=== PATIENT | female | born 1995 | race Native Hawaiian/Other Pacific Islander ===

== ENCOUNTER 2017-12-05 23:06 | Emergency (ER) | payer OTHER ==
[2017-12-05] MEDS ORDERED: Sodium Chloride 0.9% 1,000 ML IV ONE (23:40)
[2017-12-05 23:59] LABS: BASO % 0.6 % (0.0-2.0); EOS # 0.1 K/uL (0.0-0.7); EOS % 0.8 % (0.0-4.0); HEMOGLOBIN 11.1 g/dL (11.0-16.0); LYMPH # 3.1 K/uL (1.0-4.3); MEAN CELL VOLUME 87.3 fL (81.0-99.0); MEAN CORPUSCULAR HEMOGLOBIN 29.7 pg (27.0-31.0); MEAN PLATELET VOLUME 7.9 fL (7.2-11.7); MONO # 0.7 K/uL (0.0-0.8); MONO % 9.7 % (0.0-10.0); NEUT # 3.3 K/uL (1.8-7.0); NEUT % 45.9 % (50.0-75.0); NRBC % 0.4 % (0.0-2.0); RBC 3.76 Mil/uL (3.80-5.20); RED CELL DISTRIBUTION WIDTH 13.4 % (11.5-14.5); WHITE BLOOD COUNT 7.1 K/uL (4.8-10.8)
--- NOTE | 2017-12-06 00:06 | C.PDOC ---
History Of Present Illness <Jayy Can - Last Filed: 12/06/17 01:11> <Apple Fernandez - Last Filed: 12/06/17 06:49> <Silvino Mejia M - Last Filed: 12/06/17 09:29> 22 y/o female brought to ED by her family and boyfriend for bizarre behavior and vomiting due to panicking. As per boyfriend, patient ate edible marijuana and "is on a bad trip." Denies any physical complaints. (Jayy Can) History Per: Patient History/Exam Limitations: no limitations Onset/Duration Of Symptoms: Hrs Current Symptoms Are (Timing): Still Present Suicide/Self Injury Attempted (Context): None Modifying Factor(s): Marijuana Associated Symptoms: denies: Suicidal Thoughts, Suicidal Plan Involuntary Hold By: None Recent travel outside of the [place]: No <Jayy Can - Last Filed: 12/06/17 01:11> <Apple Fernandez - Last Filed: 12/06/17 06:49> <Silvino Mejia M - Last Filed: 12/06/17 09:29> Time Seen by Provider: 12/05/17 23:39 Chief Complaint (Nursing): Substance Abuse Past Medical History Reviewed: Historical Data, Nursing Documentation, Vital Signs - Medical History PMH: No Chronic Diseases Surgical History: No Surg Hx Family History: States: No Known Family Hx - Social History Hx Alcohol Use: No (unknown) Hx Substance Use: No (unknown) - Immunization History Hx Tetanus Toxoid Vaccination: No Hx Influenza Vaccination: No Hx Pneumococcal Vaccination: No <Jayy Can - Last Filed: 12/06/17 01:11> Vital Signs: Last Vital Signs Temp 98 F 12/06/17 07:19 Pulse 68 12/06/17 09:10 Resp 20 12/06/17 09:10 BP 114/73 12/06/17 09:10 Pulse Ox 98 12/06/17 09:10 Review Of Systems Constitutional: Negative for: Fever, Chills Gastrointestinal: Positive for: Vomiting. Negative for: Nausea, Abdominal Pain , Diarrhea Skin: Negative for: Rash Neurological: Negative for: Weakness, Numbness Psych: Negative for: Suicidal ideation <Jayy Can - Last Filed: 12/06/17 01:11> Physical Exam - Physical Exam Appears: Well, Non-toxic, No Acute Distress, Other (Bizarre ) Skin: Normal Color, Warm, Dry, No Rash Head: Atraumatic, Normacephalic Eye(s): bilateral: Normal Inspection (Aguiar colored contacts ), PERRL, EOMI Oral Mucosa: Moist Neck: Supple Chest: Symmetrical, No Tenderness Cardiovascular: Rhythm Regular, No Murmur Respiratory: Normal Breath Sounds, No Decreased Breath Sounds, No Rales, No Rhonchi, No Wheezing Gastrointestinal/Abdominal: Soft, No Tenderness, No Distention Extremity: Normal ROM, No Deformity Extremity: Bilateral: Atraumatic, Normal Color And Temperature, Normal ROM Neurological/Psych: Oriented x3, Normal Speech Gait: Steady <Jayy Can - Last Filed: 12/06/17 01:11> ED Course And Treatment - Laboratory Results Result Diagrams: 12/05/17 23:56 12/05/17 23:56 Lab Interpretation: Abnormal (+ mild elev glu, tox + THC) Urine POC: Negative ECG: Interpreted By Fl ECG Rhythm: Sinus Rhythm ECG Interpretation: Normal Rate From EC O2 Sat by Pulse Oximetry: 98 (RA) Pulse Ox Interpretation: Normal Progress Note: 0000: bizarre, hallucinating, agitated, incoherent. Ativan 2 mg IV for gentle overnight sedation. Reevaluation Time: 01:01 Reassessment Condition: Improved (sleeping comfortably, VSS on monitor) <Jayy Can - Last Filed: 12/06/17 01:11> - Laboratory Results Result Diagrams: 12/05/17 23:56 12/05/17 23:56 <Apple Fernandez - Last Filed: 12/06/17 06:49> - Laboratory Results Result Diagrams: 12/05/17 23:56 12/05/17 23:56 <Silvino Mejia - Last Filed: 12/06/17 09:29> Progress <Jayy Can - Last Filed: 12/06/17 01:11> - Data Reviewed Data Reviewed: Lab, Diagnostic imaging, Old records <Apple Fernandez - Last Filed: 12/06/17 06:49> <Silvino Mejia - Last Filed: 12/06/17 09:29> - Re-Evaluation Re-evaluation Note: 12/06/17 06:27 AWAKE BUT PERSIST INTOX, RESPONSIVE TO DEEP PAIN STIM. UNSTEADY GAIT ONLY W ASSISTANCE. VSS. 12/06/17 07:00 s/o DR CLIF ALMANZAR DISPO (Apple Fernandez) Medical Decision Making <Jayy Can - Last Filed: 12/06/17 01:11> <Apple Fernandez - Last Filed: 12/06/17 06:49> <Silvino Mejia - Last Filed: 12/06/17 09:29> Medical Decision Making: Administered Ativan and IV fluids. Ordered CT Head, EKG, blood work and urinalysis. accidental cannabanoid overdose eating marijuana cookies- bad trip sedated for safety re-eval in AM when sober. (Jayy Can) Disposition Doctor Will See Patient In The: Office - Disposition Disposition Time: 01:00 <Jayy Can - Last Filed: 12/06/17 01:11> <Apple Fernandez - Last Filed: 12/06/17 06:49> - Disposition Disposition Time: 09:28 <Silvino Mejia - Last Filed: 12/06/17 09:29> - Disposition Disposition: HOME/ ROUTINE Condition: STABLE Additional Instructions: follow up with your doctor within 2 days stop marijuana use call to make an appointment return to ER if symptoms worsens or progress Instructions: Marijuana Use and Addiction (DC) Forms: [facility] (Kyrgyz), General Discharge Instructions - Clinical Impression Clinical Impression: Marijuana intoxication - Scribe Statement The provider has reviewed the documentation as recorded by the Scribe <Jayy Can - Last Filed: 12/06/17 01:11> <Apple Fernandez - Last Filed: 12/06/17 06:49> <Silvino Mejia - Last Filed: 12/06/17 09:29> - Scribe Statement Russel Atwood All medical record entries made by the Scribe were at my direction and personally dictated by me. I have reviewed the chart and agree that the record accurately reflects my personal performance of the history, physical exam, medical decision making, and the department course for this patient. I have also personally directed, reviewed, and agree with the discharge instructions and disposition. (Jayy Can) Physician Patient Turnover Patient Signed Over To: Apple Fernandez Handoff Comments: dispo in AM when sober <Jayy Can E - Last Filed: 12/06/17 01:11> Addendum <Jayy Can - Last Filed: 12/06/17 01:11> <Silvino Mejia - Last Filed: 12/06/17 09:29> Addendum: 12/06/17 09:27 Received patient in s/o pending sobriety. Patient has no complaints at this time. Patient discharged home and advised to follow up with pmd within 2 days and to abstain from thc use. (Silvino Mejia)
[2017-12-06 00:38] LABS: SQUAMOUS EPITHIAL < 1 /hpf (0-5); URINE BILIRUBIN NEGATIVE (NEGATIVE); URINE BLOOD NEGATIVE (NEGATIVE); URINE CLARITY Clear (Clear); URINE COLOR Yellow (YELLOW); URINE GLUCOSE (UA) NORMAL (Normal); URINE LEUKOCYTE ESTERASE NEG Leu/uL (Negative); URINE PROTEIN NEGATIVE (NEGATIVE); URINE UROBILINOGEN NORMAL mg/dL (0.2-1.0)
[2017-12-06 00:40] LABS: HCG,QUALITATIVE URINE NEGATIVE (NEGATIVE)
[2017-12-06 00:46] LABS: ACETAMINOPHEN < 10.0 ug/mL (10.0-30.0); SALICYLATE < 1.0 mg/dL 1
[2017-12-06 00:46] LABS: ALB/GLOB RATIO 1.1 (1.0-2.1); ALBUMIN 3.4 g/dL (3.5-5.0); ALT/SGPT 131 U/L (9-52); AST/SGOT 47 U/L (14-36); BLOOD UREA NITROGEN 16 mg/dL (7-17); CALCIUM 8.5 mg/dl (8.6-10.4); GFR AFRICAN-AMERICAN > 60; GFR NON-AFRICAN AMERICAN > 60
[2017-12-06 00:48] LABS: BARBITURATES, UR NEGATIVE (NEGATIVE); BENZODIAZEPINES, UR NEGATIVE (NEGATIVE); OPIATES, UR NEGATIVE (NEGATIVE); PHENCYCLIDINE, UR NEGATIVE (NEGATIVE)
[2017-12-06 04:36] VITALS: O2SAT 98
[2017-12-06 07:20] VITALS: TEMP 98
[2017-12-06 09:12] VITALS: BP 114/73; PULSE 68; RESP 20
--- NOTE | 2017-12-07 11:37 | CARD ---
APPROVED REPORT Date of service: 12/06/2017 EKG Measurement Heart [id number] <Conclusion> Normal sinus rhythm Normal ECG
== END 2017-12-06 10:08 | disposition home or self-care (01) ==
LOC: C.ER 23:06
DX: F12.929 Cannabis use, unspecified with intoxication, unspecified (principal)
CPT/HCPCS: 80053; 80320; 80324; 80329; 80345; 80346; 80349; 80353; 80358; 80361; 81001; 82948; 83992; 84703; 85025; 93005; 96361; 96374; 99285; J2060; J7030